=== PATIENT | female | born 1945 ===

== ENCOUNTER 2020-07-06 09:00 | Inpatient (IN) | payer OTHER ==
[~2020-07-06] VITALS: Ht 157.5 cm; Wt 71.7 kg
[2020-07-06] MEDS ORDERED: LANTUS SOL100 UNIT/1 (12:52)
[2020-07-06] MEDS ORDERED: INDERAL LA80 MG PO (12:53)
[2020-07-06] MEDS ORDERED: SINGULAIR10 MG PO (12:53)
[2020-07-06] MEDS ORDERED: ACETAMINOPHEN500 M2 PO (12:54)
[2020-07-06] MEDS ORDERED: LORAZEPAM2 MG PO (12:54)
[2020-07-11] MEDS ORDERED: GABAPENTIN300 M2 (08:09)
[2020-07-11] MEDS ORDERED: HYDROCHLOROTHIA25 MG (08:09)
[2020-07-11] MEDS ORDERED: PROPRANOLOL HCL40 MG (08:10)
[2020-07-11] MEDS ORDERED: SIMVASTATIN20 MG (08:10)
[2020-07-13] MEDS ORDERED: INTEGRA PLUS C1 EACH PO (06:27)
[2020-07-13] MEDS ORDERED: BACTRIM 400-801 EACH PO (06:27)
[2020-07-13] MEDS ORDERED: OXYC1TAB9 PO (06:27)
[2020-07-13] MEDS ORDERED: XARELTO10 MG PO (06:27)
== END 2020-07-13 14:54 | DRG 470 ==
LOC: SURG 07-11 05:00 → O/R 07-11 05:00 → SURH 07-11 07:00 → SURG 07-11 11:35
PROVIDERS: ADMIT Orthopaedic Surgery Sports Medicine; ATTEND Orthopaedic Surgery Sports Medicine
PROC: 0SRB02Z Replacement of Left Hip Joint with Metal on Polyethylene Synthetic Substitute, Open Approach (ICD-10-PCS; principal; 2020-07-11 07:00)
PROC: 3E0F7GC Introduction of Other Therapeutic Substance into Respiratory Tract, Via Natural or Artificial Opening (ICD-10-PCS; 2020-07-13)
DX: M16.12 Unilateral primary osteoarthritis, left hip (principal); Z20.828 Contact with and (suspected) exposure to other viral communicable diseases